=== PATIENT | female | born 1990 | race African-American/Black ===

== ENCOUNTER 2017-08-06 02:37 | Emergency (ER) | payer BC ==
[2017-08-06] MEDS ORDERED: FENTANYL CITRATE INJ/PF 100 MCG/2 ML AMPUL IV ONE (03:24)
[2017-08-06] MEDS ORDERED: KETOROLAC TROMETHAMINE INJ/PF 30 MG/1 ML SDV IV ONE (03:39)
[2017-08-06 03:50] LABS: APPEARANCE,URINE CLOUDY; BILIRUBIN,URINE NEGATIVE (NEGATIVE); COLOR,URINE YELLOW; GLUCOSE, URINE NEGATIVE (NEGATIVE); KETONES,URINE NEGATIVE (NEGATIVE); LEUKOCYTE ESTERASE,URINE LARGE (NEGATIVE); NITRITE,URINE NEGATIVE (NEGATIVE); PROTEIN,URINE 30 mg/dL (NEGATIVE); URINE SPECIFIC GRAVITY 1.028; UROBILINOGEN,URINE NEGATIVE mg/dL (<2.0)
--- NOTE | 2017-08-06 04:21 | ER Document Report ---
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 Pt dneies any fevers or chills, denies nausea vomiting or diarrhea. pt had us performed which noted a "good size " cyst on the right. Pt notes the pain was worst at home but has since subsided. - HPI Onset: Last week Onset/Duration: Sudden, Waxing and waning Quality of pain: Sharp Severity: Mild Pain Level: 1 Associated symptoms: Other Exacerbated by: Denies Relieved by: Denies Similar symptoms previously: Yes Recently seen / treated by doctor: Yes - Related Data Allergies/Adverse Reactions: No Known Allergies Allergy (Unverified 08/06/17 02:38) Past Medical History - Social History Smoking Status: Never Smoker Cigarette use (# per day): No Chew tobacco use (# tins/day): No Smoking Education Provided: No Family History: Reviewed & Not Pertinent Review of Systems - Review of Systems Notes: REVIEW OF SYSTEMS: CONSTITUTIONAL : Denies fever, chills, or sweats. Denies recent illness. EENT: Denies eye, ear, throat, or mouth pain or symptoms. Denies nasal or sinus congestion or discharge. Denies throat, tongue, or mouth swelling or difficulty swallowing. CARDIOVASCULAR: Denies chest pain. Denies palpitations or racing or irregular heart beat. Denies ankle edema. RESPIRATORY: Denies cough, cold, or chest congestion. Denies shortness of breath, difficulty breathing, or wheezing. GASTROINTESTINAL: Admits pelvic pain GENITOURINARY: Denies difficulty urinating, painful urination, burning, frequency, blood in urine, or discharge. FEMALE GENITOURINARY: Denies vaginal bleeding, heavy or abnormal periods, irregular periods. Denies vaginal discharge or odor. MUSCULOSKELETAL: Denies back or neck pain or stiffness. Denies joint pain or swelling. SKIN: Denies rash, lesions or sores. HEMATOLOGIC : Denies easy bruising or bleeding. LYMPHATIC: Denies swollen, enlarged glands. NEUROLOGICAL: Denies confusion or altered mental status. Denies passing out or loss of consciousness. Denies dizziness or lightheadedness. Denies headache. Denies weakness or paralysis or loss of use of either side. Denies problems with gait or speech. Denies sensory loss, numbness, or tingling. Denies seizures. PSYCHIATRIC: Denies anxiety or stress. Denies depression, suicidal ideation, or homicidal ideation. ALL OTHER SYSTEMS REVIEWED AND NEGATIVE. PHYSICAL EXAMINATION: GENERAL: Well-appearing, well-nourished and in no acute distress. HEAD: Atraumatic, normocephalic. EYES: Pupils equal round and reactive to light, extraocular movements intact, conjunctiva are normal. ENT: Nares patent, oropharynx clear without exudates. Moist mucous membranes. NECK: Normal range of motion, supple without lymphadenopathy LUNGS: Breath sounds clear to auscultation bilaterally and equal. No wheezes rales or rhonchi. HEART: Regular rate and rhythm without murmurs ABDOMEN: Soft, nontender, nondistended abdomen. No guarding, no rebound. No masses appreciated. Female : deferred Musculoskeletal: Normal range of motion, no pitting or edema. No cyanosis. NEUROLOGICAL: Cranial nerves grossly intact. Normal speech, normal gait. Normal sensory, motor exams PSYCH: Normal mood, normal affect. SKIN: Warm, Dry, normal turgor, no rashes or lesions noted. Dictation was performed using [employer] voice recognition software Physical Exam - Vital signs Vitals: Temp Pulse Resp BP Pulse Ox 98.9 F 118 H 18 147/105 H 98 08/06/17 02:42 08/06/17 02:42 08/06/17 02:42 08/06/17 02:42 08/06/17 02:42 Course - Re-evaluation Re-evalutation: 08/06/17 04:49 Currently patient is completely asymptomatic, ultrasound is pending to rule out ovarian torsion given history of cyst but this is probably pain related to a cyst versus a ruptured cyst. She looks well is afebrile no distress 08/06/17 06:12 Ultrasound report noted dominant follicle otherwise well-appearing no distress will discharge home patient with follow-up with [facility] After performing a Medical Screening Examination, I estimate there is LOW risk for ACUTE APPENDICITIS, BOWEL OBSTRUCTION, ACUTE CHOLECYSTITIS, PERFORATED DIVERTICULITIS, INCARCERATED HERNIA, PANCREATITIS, PELVIC INFLAMMATORY DISEASE, PERFORATED ULCER, ECTOPIC , or TUBO-OVARIAN ABSCESS, thus I consider the discharge disposition reasonable. Also, there is no evidence or peritonitis , sepsis, or toxicity. I have reevaluated this patient multiple times and no significant life threatening changes are noted. The patient and I have discussed the diagnosis and risks, and we agree with discharging home with close follow-up with the understanding that symptoms and presentations can change. We also discussed returning to the Emergency Department immediately if new or worsening symptoms occur. We have discussed the symptoms which are most concerning (e.g., bloody stool, fever, changing or worsening pain, vomiting) that necessitate immediate return. - Vital Signs Vital signs: Temp Pulse Resp BP Pulse Ox 97.7 F 74 18 125/72 99 08/06/17 04:40 08/06/17 04:40 08/06/17 04:40 08/06/17 04:40 08/06/17 04:40 - Laboratory Result Diagrams: 08/06/17 04:15 08/06/17 04:15 Laboratory results interpreted by me: 08/06/17 08/06/17 03:30 04:15 Alkaline Phosphatase 33 L Urine Protein 30 H Urine Blood SMALL H Ur Leukocyte Esterase LARGE H - Diagnostic Test Radiology reviewed: Image reviewed, Reports reviewed - Report given to patient reviewed by myself Discharge - Discharge Clinical Impression: Pelvic pain Condition: Stable Disposition: HOME, SELF-CARE Instructions: Pelvic Pain ([facility]) Additional Instructions: Follow up with your physician tomorrow for further care or return to the ED IMMEDIATELY if symptoms worsen or new concerns occur. If you cannot afford to follow up with your primary care physician a list of low cost clinics have been provided at the end of your discharge papers as well.
[2017-08-06 04:29] LABS: ABSOLUTE BASOPHILS # (AUTO) 0.1 10^3/uL (0.0-0.2); ABSOLUTE EOSINOPHILS # (AUTO) 0.1 10^3/uL (0.0-0.6); ABSOLUTE LYMPHOCYTES (AUTO) 2.3 10^3/uL (0.5-4.7); ABSOLUTE MONOCYTES (AUTO) 0.6 10^3/uL (0.1-1.4); ABSOLUTE NEUT (AUTO) 3.7 10^3/uL (1.7-8.2); EOSINOPHILS % (AUTO) 1.9 % (0-6); HEMATOCRIT 38.1 % (36.0-47.0); HEMOGLOBIN 12.3 g/dL (12.0-15.5); LYMPHOCYTES % (AUTO) 33.9 % (13-45); MEAN CORPUSCULAR HEMOGLOBIN 27.2 pg (27.0-33.4); MEAN CORPUSCULAR HGB CONC 32.4 g/dL (32.0-36.0); MEAN CORPUSCULAR VOLUME 84 fl (80-97); MONOCYTES % (AUTO) 8.6 % (3-13); PLATELET COUNT 256 10^3/uL (150-450); RED BLOOD COUNT 4.54 10^6/uL (3.72-5.28); SEGMENTED NEUTROPHILS % (AUTO) 54.6 % (42-78); TOTAL CELLS COUNTED % (AUTO) 100 %; WHITE BLOOD COUNT 6.9 10^3/uL (4.0-10.5)
[2017-08-06 04:51] LABS: ALANINE AMINOTRANSFERASE 20 U/L (9-52); ALBUMIN 3.8 g/dL (3.5-5.0); ALKALINE PHOSPHATASE 33 U/L (38-126); ANION GAP 10 (5-19); ASPARTATE AMINO TRANSFERASE 17 U/L (14-36); BILIRUBIN,TOTAL 0.2 mg/dL (0.2-1.3); BLOOD UREA NITROGEN 10 mg/dL (7-20); CALCIUM 9.6 mg/dL (8.4-10.2); CARBON DIOXIDE 24 mmol/L (22-30); CHLORIDE 107 mmol/L (98-107); GLUCOSE 92 mg/dL (75-110); POTASSIUM 4.4 mmol/L (3.6-5.0); SODIUM 140.7 mmol/L (137-145); TOTAL PROTEIN 6.7 g/dL (6.3-8.2)
--- NOTE | 2017-08-06 06:10 | RADIOLOGY REPORT (SQ) ---
EXAM DESCRIPTION: U/S NON OB PEL TV W/DOPPLER CLINICAL HISTORY: 26 years Female, hx ovarian cyst, rlq pain COMPARISON: None. TECHNIQUE: Complete pelvic ultrasound with transvaginal imaging. FINDINGS: The uterus measures 8.1 x 3.5 x 4.2 cm. Endometrial thickness of 1.0 cm. Cervix measures 4.1 cm in length and is closed. The right ovary measures 4.9 x 2.5 x 3.5 cm. There is a 3.0 x 1.7 x 2.0 cm dominant follicle. No follow-up imaging recommended. The left ovary measures 2.8 x 3.2 x 1.9 cm. Limited color spectral Doppler imaging demonstrates flow within the ovaries bilaterally. No free pelvic fluid. IMPRESSION: 1. No sonographic abnormality identified in the pelvis.
[2017-08-06 06:35] VITALS: BP 122/75
== END 2017-08-06 06:42 | disposition home or self-care (01) ==
LOC: ER 02:37
DX: R10.2 Pelvic and perineal pain (principal); R10.31 Right lower quadrant pain
CPT/HCPCS: 99284; 96374; 36415; 85025; 80053; 81001; 76830; 93976; J1885

== ENCOUNTER 2019-11-23 11:19 | Outpatient (CLI) | payer OTHER ==
--- NOTE | 2019-11-23 12:09 | Non Stress Test Report ---
Non Stress Test Datetime Report Generated by CPN: 11/23/2019 12:08 DEMOGRAPHIC Test Number: 1 MONITORING Monitor Explained: Monitor Explained; Test Explained; Patient Verbalized Understanding Time on Monitor: 11/23/2019 11:34 NST INTERVENTIONS NST Interventions: PO Hydration; Reposition Patient Physician Notified NST: NKate Armenta, CNM BABY A: [id number] BABY A Movement : Present Contraction Frequency : none FHR Baseline : 140 Accelerations : 15X15 Decelerations : None Variability : Moderate 6-25bpm NST Review: Meets Criteria for Reactive NST NST Review and Verified By : Regan,RN NST Results: Reactive NST REPORT Report Trigger: Send Report
== END 2019-11-23 12:14 | disposition home or self-care (01) ==
LOC: LC 11:19
PROVIDERS: ATTEND Obstetrics & Gynecology
DX: O24.419 Gestational diabetes mellitus in pregnancy, unspecified control (principal); Z3A.37 37 weeks gestation of pregnancy
CPT/HCPCS: 59025

== ENCOUNTER 2019-12-16 20:22 | Inpatient (IN) | payer OTHER ==
[2019-12-16] MEDS ORDERED: ACETAMINOPHEN 325 MG TABLET PO PRN (20:27)
[2019-12-16] MEDS ORDERED: DINOPROSTONE 10 MG VAGINAL INSERT.SR PV ONE (20:27)
[2019-12-16] MEDS ORDERED: RINGERS SOLUTION,LACTATED 1,000 ML IV ONE (20:27)
[2019-12-16] MEDS ORDERED: MAG HYDROX/AL HYDROX/SIMETH SUSP 30 ML UDCUP PO PRN (20:27)
[2019-12-16] MEDS ORDERED: RINGERS SOLUTION,LACTATED 300 ML IV ONE (20:27)
[2019-12-16] MEDS ORDERED: ZOLPIDEM TARTRATE 5 MG TABLET PO PRN (20:27)
[2019-12-16 21:11] LABS: ABSOLUTE EOSINOPHILS # (AUTO) 0.1 10^3/uL (0.0-0.6); ABSOLUTE MONOCYTES (AUTO) 0.6 10^3/uL (0.1-1.4); ABSOLUTE NEUT (AUTO) 4.5 10^3/uL (1.7-8.2); BASOPHILS % (AUTO) 0.5 % (0-2); HEMATOCRIT 35.9 % (36.0-47.0); HEMOGLOBIN 11.9 g/dL (12.0-15.5); LYMPHOCYTES % (AUTO) 28.3 % (13-45); MEAN CORPUSCULAR HEMOGLOBIN 28.5 pg (27.0-33.4); MEAN CORPUSCULAR HGB CONC 33.2 g/dL (32.0-36.0); MEAN CORPUSCULAR VOLUME 86 fl (80-97); MONOCYTES % (AUTO) 7.8 % (3-13); PLATELET COUNT 209 10^3/uL (150-450); RED BLOOD COUNT 4.19 10^6/uL (3.72-5.28); RED CELL DISTRIBUTION WIDTH 14.6 % (11.5-14.0); SEGMENTED NEUTROPHILS % (AUTO) 62.4 % (42-78); TOTAL CELLS COUNTED % (AUTO) 100 %; WHITE BLOOD COUNT 7.2 10^3/uL (4.0-10.5)
[2019-12-16 21:37] LABS: URINE AMPHETAMINES SCREEN NEGATIVE; URINE BARBITURATES SCREEN NEGATIVE; URINE BENZODIAZEPINES SCREEN NEGATIVE; URINE COCAINE SCREEN NEGATIVE; URINE MARIJUANA (THC) SCREEN NEGATIVE; URINE METHADONE SCREEN NEGATIVE; URINE PHENCYCLIDINE SCREEN NEGATIVE
[2019-12-16] MEDS ORDERED: DINOPROSTONE 10 MG VAGINAL INSERT.SR ONE (21:45)
[2019-12-16] MEDS: RINGERS SOLUTION,LACTATED 1,000 ML IV PRN (21:48)
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
[2019-12-17] MEDS ORDERED: OXYTOCIN 10 UNIT/ML VIAL ONE (10:21)
[2019-12-17] MEDS ORDERED: OXYTOCIN/0.9 % SODIUM CHLORIDE 30 UNIT/500 ML RTUINJ ONE (10:21)
[2019-12-17] MEDS ORDERED: LIDOCAINE 1% INJ-PF (10 MG/ML) 30 ML SDV ONE (10:21)
[2019-12-17] MEDS ORDERED: MISOPROSTOL 0.2 MG TABLET ONE (10:21)
[2019-12-17] MEDS: OXYTOCIN/0.9 % SODIUM CHLORIDE 30 UNIT/500 ML RTUINJ IV PRN (10:25)
[2019-12-17] MEDS: RINGERS SOLUTION,LACTATED 1,000 ML IV PRN (13:00)
[2019-12-17] MEDS ORDERED: DINOPROSTONE 10 MG VAGINAL INSERT.SR PV ONE (17:47)
[2019-12-17] MEDS ORDERED: DINOPROSTONE 10 MG VAGINAL INSERT.SR ONE (18:21)
[2019-12-17] MEDS ORDERED: ACETAMINOPHEN 325 MG TABLET ONE (20:12)
[2019-12-18] MEDS ORDERED: OXYTOCIN 10 UNIT/ML VIAL ONE (10:55)
[2019-12-18] MEDS ORDERED: OXYTOCIN/0.9 % SODIUM CHLORIDE 30 UNIT/500 ML RTUINJ ONE (10:56)
[2019-12-18] MEDS ORDERED: LIDOCAINE 1% INJ-PF (10 MG/ML) 30 ML SDV ONE (10:56)
[2019-12-18] MEDS ORDERED: MISOPROSTOL 0.2 MG TABLET ONE (10:56)
[2019-12-18] MEDS ORDERED: NALBUPHINE HCL INJ 10 MG/1 ML AMPULE ONE ×2 (11:06→21:36)
[2019-12-18] MEDS: OXYTOCIN/0.9 % SODIUM CHLORIDE 30 UNIT/500 ML RTUINJ IV PRN (11:07)
[2019-12-18] MEDS ORDERED: NALBUPHINE HCL INJ 10 MG/1 ML AMPULE IV ONE (11:09)
[2019-12-18] MEDS ORDERED: NALBUPHINE HCL INJ 10 MG/1 ML AMPULE IM ONE (11:09)
[2019-12-18] MEDS ORDERED: OXYTOCIN/0.9 % SODIUM CHLORIDE 30 UNIT/500 ML RTUINJ IV PRN (11:11)
[2019-12-18] MEDS ORDERED: NALBUPHINE HCL INJ 10 MG/1 ML AMPULE INJ ONE (21:34)
[2019-12-18] MEDS ORDERED: EPHEDRINE SULFATE INJ 50 MG/1 ML AMPULE ONE (22:56)
[2019-12-18] MEDS ORDERED: ROPIVACAINE HCL 0.2% INJ/PF (2 MG/ML) 20 ML SDV ONE (22:57)
[2019-12-18] MEDS ORDERED: FENTANYL/BUPIVACAINE/NS/PF 300 MCG/150 ML RTUINJ EPI ONE (22:57)
[2019-12-19] MEDS ORDERED: LIDOCAINE 2% INJ-PF (20 MG/ML) 10 ML AMPUL ONE ×2 (04:22→07:31)
[2019-12-19] MEDS ORDERED: CEFAZOLIN 2 GM/D5W RTU 2 GM/50 ML RTUPB IV ONE ×2 (05:03→06:39)
[2019-12-19] MEDS ORDERED: CEFAZOLIN 2 GM/D5W RTU 2 GM/50 ML RTUPB IV SCH (06:00)
[2019-12-19] MEDS ORDERED: CITRIC ACID/SODIUM CITRATE ORAL SOLN 15 ML UDCUP ONE (06:39)
--- NOTE | 2019-12-19 07:00 | PDOC PROGRESS REPORT ---
Subjective Progress Note for:: 12/19/19 Subjective:: Called as patient having increased pain. She had reported increased pain after placement of IUPC and that was removed about 25 minutes ago because the patient felt pain was related to the IUPC. The pain continued and this is even after anesthesia re-dosed her epidural. Cat 1 NST On exam , cervix is 6/90/-2. She has 1-2 cm caput Discussed with patient and her that after last 4 hours with IUPC showing adequate contractions while it was in, she has had no progression of descent. Recommend a PCS Answered all questions. Consent signed. Reason For Visit: INDUCTION Physical Exam - Physical Exam Vital Signs: Intake & Output 12/17/19 12/18/19 12/19/19 06:59 06:59 06:59 Intake Total 1000 Balance 1000 Weight 145.1 kg General appearance: PRESENT: no acute distress Neurological exam: PRESENT: alert, awake Psychiatric exam: PRESENT: appropriate affect Result Laboratory Results: 12/16/19 20:48 Assessment & Plan - Diagnosis (1) Gestational diabetes mellitus, antepartum Is this a current diagnosis for this admission?: Yes (2) Failure to progress in labor Is this a current diagnosis for this admission?: Yes - Time Time Spent with patient: 15-24 minutes Medications reviewed and adjusted accordingly: Yes - Plan Summary Plan Summary: Called as patient having increased pain. She had reported increased pain after placement of IUPC and that was removed about 25 minutes ago because the patient felt pain was related to the IUPC. The pain continued and this is even after anesthesia re-dosed her epidural. Cat 1 NST On exam , cervix is 6/90/-2. She has 1-2 cm caput Discussed with patient and her that after last 4 hours with IUPC showing adequate contractions while it was in, she has had no progression of descent. Recommend a PCS Answered all questions. Consent signed Plan ancef 2 gms IV prior to OR NPO for >8 hours
[2019-12-19] MEDS ORDERED: ONDANSETRON HCL INJ/PF 4 MG/2 ML SDV ONE (07:02)
[2019-12-19] MEDS ORDERED: PHENYLEPHRINE HCL INJ/PF 10 MG/1 ML SDV ONE (07:02)
[2019-12-19] MEDS ORDERED: OXYTOCIN/0.9 % SODIUM CHLORIDE 0 UNIT/0 ML RTUINJ ONE (07:02)
[2019-12-19] MEDS ORDERED: GLYCOPYRROLATE INJ 0.4 MG/2 ML VIAL ONE (07:02)
[2019-12-19] MEDS ORDERED: KETOROLAC TROMETHAMINE INJ/PF 30 MG/1 ML SDV ONE (07:02)
[2019-12-19] MEDS ORDERED: MIDAZOLAM 2 MG/2 ML INJ ONE (07:02)
[2019-12-19] MEDS ORDERED: ACETAMINOPHEN 1,000 MG/100 ML RTUPB IV ONE (07:02)
[2019-12-19] MEDS ORDERED: OXYTOCIN 10 UNIT/ML VIAL ONE ×2 (07:02→08:03)
[2019-12-19] MEDS ORDERED: FENTANYL CITRATE INJ/PF 100 MCG/2 ML AMPUL ONE ×4 (07:02→11:17)
[2019-12-19] MEDS ORDERED: SIMETHICONE 80 MG TAB.CHEW PO PRN (07:05)
[2019-12-19] MEDS ORDERED: RINGERS SOLUTION,LACTATED 1,000 ML IV PRN (07:05)
[2019-12-19] MEDS ORDERED: OXYCODONE-ACETAMINOPHEN 5-325 MG TABLET PO PRN ×2 (07:05)
[2019-12-19] MEDS ORDERED: DIPH/PERTUSS(ACELL)/TETANUS VAC/PF 0.5 ML SYR (>=10YO) IM PRN (07:05)
[2019-12-19] MEDS ORDERED: MEASLES,MUMPS&RUBELLA VACC/PF 0.5 ML VIAL SUBCUT PRN (07:05)
[2019-12-19] MEDS ORDERED: OXYTOCIN/0.9 % SODIUM CHLORIDE 30 UNIT/500 ML RTUINJ IV PRN (07:05)
[2019-12-19] MEDS ORDERED: PROMETHAZINE HCL INJ 25 MG/1 ML VIAL IV PRN (07:05)
[2019-12-19] MEDS ORDERED: HYDROMORPHONE HCL INJ/PF 2 MG/ML AMPULE IV PRN (07:06)
[2019-12-19] MEDS ORDERED: OXYTOCIN/0.9 % SODIUM CHLORIDE 30 UNIT/500 ML RTUINJ ONE (07:31)
[2019-12-19] MEDS ORDERED: CARBOPROST TROMETHAMINE INJ 250 MCG/1 ML AMPULE ONE ×2 (07:31→10:53)
[2019-12-19] MEDS ORDERED: MISOPROSTOL 0.2 MG TABLET ONE ×2 (07:31→10:07)
[2019-12-19] MEDS ORDERED: METHYLERGONOVINE MALEATE INJ/PF 0.2 MG/1 ML AMPULE ONE (07:32)
[2019-12-19] MEDS ORDERED: BUPIVACAINE HCL 0.25 % INJ/PF (2.5 MG/1 ML) 30 ML VIAL ONE (08:30)
--- NOTE | 2019-12-19 08:59 | Operative Report ---
Operative Report DATE OF SURGERY: 12/19/19 PREOPERATIVE DIAGNOSIS: IUP @ 40 3/7 wks, failure to progress, failed induction POSTOPERATIVE DIAGNOSIS: Same OPERATION: Primary low transverse hysterotomy section SURGEON: NUBIA LECHUGA ANESTHESIA: Spinal COMPLICATIONS: None ESTIMATED BLOOD LOSS: 1200 cc INTRAOPERATIVE FINDINGS: Female in cephalic presentation with Apgars of 8 and 9 purulent material noted on hysterotomy infant felt warm to touch, uterine atony during the procedure was rectified with sublingual Cytotec and intr amuscular Pitocin injected into the uterus PROCEDURE: PROCEDURE IN DETAIL: The patient was taken to the operating room, prepared and draped in a normal sterile fashion in a supine position with a leftward tilt. A transverse skin incision was made with a scalpel and carried through to the underlying layer of fascia with the same scalpel. The fascia was excised in the midline and extended laterally with Homer. The fascia was then dissected from the rectus muscle sharply with Homer and the rectus muscle was divided and the peritoneal cavity was entered sharply with the same Metzenbaum. With good visualization of the bladder and the uterus the bladder blade was inserted. The hysterotomy was nicked with a scalpel and extended laterally with surgeon finger fraction. The infant was then delivered atraumatically. The nose and mouth were suctioned with a suction bulb, the cord was clamped and cut and handed off to awaiting pediatricians. Cord blood was collected. The placenta was removed manually. The uterus was exteriorized and cleared of clots and debris. The hysterotomy was closed with 0 chromic in a running, locked fashion. A second layer of the same suture was used to imbricate to ensure hemostasis. The uterus was returned to the abdomen and peritoneal cavity was cleared of clots and debris. The rectus muscle and peritoneum were repaired with mattress stitch of 2-0 Chromic. The fascia was closed with 0-PDS. The subcutaneous layer was closed with plain catgut and the skin was closed with 4-0 monocryl. The patient tolerated the procedure well. Sponge, lap, and needle counts correct x2 and the patient was taken to recovery in stable condition.
[2019-12-19 09:42] LABS: HEMATOCRIT 35.7 % (36.0-47.0); HEMOGLOBIN 11.6 g/dL (12.0-15.5); MEAN CORPUSCULAR HEMOGLOBIN 28.3 pg (27.0-33.4); MEAN CORPUSCULAR HGB CONC 32.5 g/dL (32.0-36.0); MEAN CORPUSCULAR VOLUME 87 fl (80-97); PLATELET COUNT 186 10^3/uL (150-450); RED BLOOD COUNT 4.09 10^6/uL (3.72-5.28); RED CELL DISTRIBUTION WIDTH 15.1 % (11.5-14.0); WHITE BLOOD COUNT 11.9 10^3/uL (4.0-10.5)
[2019-12-19] MEDS: RINGERS SOLUTION,LACTATED 1,000 ML IV PRN (09:53)
[2019-12-19] MEDS ORDERED: LOPERAMIDE HCL 2 MG CAPSULE ONE (10:01)
[2019-12-19] MEDS ORDERED: TRANEXAMIC ACID INJ/PF 1,000 MG/10 ML SDV ONE (10:53)
[2019-12-19] MEDS ORDERED: NORMAL SALINE 250 ML IV PRN ×2 (10:55)
[2019-12-19] MEDS ORDERED: CARBOPROST TROMETHAMINE INJ 250 MCG/1 ML AMPULE IM ONE (10:59)
[2019-12-19] MEDS ORDERED: TRANEXAMIC ACID INJ/PF 1,000 MG/10 ML SDV IV ONE (11:06)
[2019-12-19] MEDS ORDERED: AMPICILLIN SOD/SULBACTAM 3 GM VIAL ONE (11:55)
[2019-12-19] MEDS ORDERED: HYDROMORPHONE HCL INJ/PF 2 MG/ML AMPULE ONE (11:55)
[2019-12-19] MEDS ORDERED: AMPICILLIN SOD/SULBACTAM 3 GM VIAL IV SCH (12:00)
--- NOTE | 2019-12-19 13:31 | Delivery Summary ---
Del Sum A-C Datetime Report Generated by CPN: 12/19/2019 13:31 DELIVERY PERSONNEL DELIVERY PERSONNEL: [id number] Delivery Doctor:: Lucy Bonner MD Anesthesiologist:: Daisy Randolph MD OPERATING THEATRE TECHNICIAN:: Meng Normile, OPERATING THEATRE TECHNICIAN Labor and Delivery Nurse:: Vivienne Pike RNgas combustion engineer Nurse:: Katherine Gutierrez RN [place] Assembler:: Vivienne Pike RN Java Web Developer/COORDINATOR CARDIOPULMONARY SERVICES: Iris Mcginnis, ST Java Web Developer/COORDINATOR CARDIOPULMONARY SERVICES: Pauline Erazo, TYRE FITTER MATERNAL INFORMATION Delivery Anesthesia: Epidural; Spinal Medications After Delivery: Pitocin 30 Units in 500ml NS/D5W; Pitocin Drip 20 Units/1000ml NSS; Cytotec 800mcg Per Rectum/Vagina; Other-Please Comment Meds After Delivery Comment: Cytotec 800mcg per rectum, Hemabate 250mcg x2 doses, 200mcg Cytotec SL, Pitocin 10units IM Uterus, TXA 1000mg IV Delivery QBL: 1220 Maternal Complications: Hemorrhage; Prolonged Labor > 20 Hrs LABOR SUMMARY EDC: 12/13/2019 00:00 No. Babies in Womb: 1 Attempted: No Labor Anesthesia: Epidural LABOR INFORMATION Reason for Induction: Post Dates; Maternal Diabetes Reason for Induction- Other: Gestational Diabetes (Maternal Diabetes) Onset of Labor: 12/18/2019 14:45 Cervical Ripening Agents: Blackman Balloon Oxytocin: Induction Group B Beta Strep: Negative Steroids Given: None Reason Steroids Not Administered: Not Applicable MEMBRANES Membranes Rupture Method: Artificial Rupture of Membranes: 12/18/2019 14:45 Length of Rupture (hr): 17.25 Amniotic Fluid Color: Clear Amniotic Fluid Amount: Scant Amniotic Fluid Odor: Normal STAGES OF LABOR Stage 3 hr: 0 Stage 3 min: 0 Total Time in Labor hr: 17 Total Time in Labor min: 15 VAGINAL DELIVERY Episiotomy: None Laceration #1: None Laceration Extension #1: N/A Sponge Count Correct: N/A Sharps Count Correct: N/A CSECTION DELIVERY Primary Indication: Prolonged Latent Phase Secondary Indication: Failure of Descent CSection Urgency: Non-Scheduled CSection Incidence: Primary Labor: Labor Elective: N/A CSection Incision: Lower Uterine Transverse BABY A INFORMATION Delivery Date/Time: 12/19/2019 08:00 Method of Delivery: Nurse Controlled Delivery: No Born in Route : No : N/A Forceps: N/A Vacuum Extraction: N/A Shoulder Dystocia : No PRESENTATION/POSITION BABY A Presentation: Cephalic Cephalic Presentation: Vertex Vertex Position: Occipital Posterior Breech Presentation: N/A PLACENTA INFORMATION BABY A Placenta Delivery Time : 12/19/2019 08:00 Placenta Method of Delivery: Manual Removal Placenta Status: Delivered SCORES BABY A Heart Rate 1 min: >100 bpm Resp Effort 1 min: Good Cry Reflex Irritability 1 min: Cough or Sneeze or Pulls Away Muscle Tone 1 min: Active Motion Color 1 min: Body [place], Extremities Blue Resuscitation Effort 1 min: Tactile Stimulation SCORE 1 MIN: 9 Heart Rate 5 min: >100 bpm Resp Effort 5 min: Good Cry Reflex Irritability 5 min: Cough or Sneeze or Pulls Away Muscle Tone 5 min: Active Motion Color 5 min: Body [place], Extremities Blue SCORE 5 MIN: 9 INFORMATION BABY A Gestational Age at Delivery: 40.6 Gestational Status: Full Term- 39- 40.6 Weeks Outcome : Liveborn Condition : Stable Infant Sex: Female IDENTIFICATION BABY A Verification Date/Time: 12/19/2019 09:17 ID Band Number: [id number] Mother's Name Verified: Yes Infant RN Verifying Infant: VaibhavARPAN quinonez Additional Verifying Personnel: RasheedaRN WEIGHT/LENGTH BABY A Birthweight (gm): 3490 Infant Weight (lb): 7 Infant Weight (oz): 11 Infant Length (in): 20.50 Length (cm): 52.07 CORD INFORMATION BABY A No. Cord Vessels: 3 Nuchal Cord : N/A Cord Blood Taken: Yes-For Storage (Mom's Blood type +) Infant Suction: None ASSESSMENT BABY A Skin to Skin: Yes BABY B INFORMATION : N/A
[2019-12-19] MEDS: DOCUSATE SODIUM 100 MG CAPSULE PO SCH ×2 (14:31→18:06)
[2019-12-19] MEDS: PRENATAL VITAMIN W DHA CAPSULE PO SCH (14:32)
[2019-12-19] MEDS ORDERED: METHYLERGONOVINE MALEATE 0.2 MG TABLET ONE (14:58)
[2019-12-19] MEDS: KETOROLAC TROMETHAMINE INJ/PF 30 MG/1 ML SDV IV SCH ×2 (15:18→22:44)
[2019-12-19] MEDS: METHYLERGONOVINE MALEATE 0.2 MG TABLET PO SCH ×3 (15:18→22:44)
[2019-12-19] MEDS ORDERED: DIPHENHYDRAMINE HCL 25 MG CAPSULE ONE (18:41)
[2019-12-19] MEDS ORDERED: AMPICILLIN SODIUM/SULBACTAM NA 3 GM in NORMAL SALINE 100 ML IV SCH (20:00)
[2019-12-19] MEDS: ACETAMINOPHEN 325 MG TABLET PO PRN (21:18)
[2019-12-20] MEDS: AMPICILLIN SODIUM/SULBACTAM NA 3 GM in NORMAL SALINE 100 ML IV SCH ×2 (00:08→06:08)
[2019-12-20] MEDS: METHYLERGONOVINE MALEATE 0.2 MG TABLET PO SCH ×3 (02:34→10:04)
[2019-12-20] MEDS: ACETAMINOPHEN 325 MG TABLET PO PRN (05:59)
[2019-12-20] MEDS: KETOROLAC TROMETHAMINE INJ/PF 30 MG/1 ML SDV IV SCH (06:02)
[2019-12-20 09:01] LABS: APPEARANCE,URINE CLEAR; BILIRUBIN,URINE NEGATIVE (NEGATIVE); GLUCOSE, URINE NEGATIVE (NEGATIVE); KETONES,URINE NEGATIVE (NEGATIVE); LEUKOCYTE ESTERASE,URINE TRACE (NEGATIVE); NITRITE,URINE NEGATIVE (NEGATIVE); PROTEIN,URINE 100 mg/dL (NEGATIVE); URINE SPECIFIC GRAVITY 1.006; UROBILINOGEN,URINE NEGATIVE mg/dL (<2.0)
[2019-12-20 09:02] LABS: COLOR,URINE RED
--- NOTE | 2019-12-20 09:09 | RADIOLOGY REPORT (SQ) ---
EXAM DESCRIPTION: CHEST 2 VIEWS IMAGES COMPLETED DATE/TIME: 12/20/2019 7:50 am REASON FOR STUDY: elevated temp,infection? COMPARISON: None. TECHNIQUE: Frontal and lateral radiographic views of the chest acquired. NUMBER OF VIEWS: Two view. LIMITATIONS: None. FINDINGS: LUNGS AND PLEURA: No opacities, masses or pneumothorax. No pleural effusion. MEDIASTINUM AND HILAR STRUCTURES: No masses or contour abnormalities. HEART AND VASCULAR STRUCTURES: Heart normal size. No evidence for failure. BONES: No acute findings. HARDWARE: None in the chest. OTHER: No other significant finding. IMPRESSION: NO SIGNIFICANT RADIOGRAPHIC FINDING IN THE CHEST. TECHNICAL DOCUMENTATION: JOB ID: [id number] 2010 [employer]- All Rights Reserved Reading location - IP/workstation name: [email or web address]
[2019-12-20] MEDS: IBUPROFEN 800 MG TABLET PO SCH ×4 (10:00→23:17)
[2019-12-20] MEDS: PRENATAL VITAMIN W DHA CAPSULE PO SCH (10:04)
[2019-12-20] MEDS: DOCUSATE SODIUM 100 MG CAPSULE PO SCH ×2 (10:04→17:10)
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
[2019-12-21] MEDS: IBUPROFEN 800 MG TABLET PO SCH ×2 (05:20→13:31)
[2019-12-21] MEDS: DOCUSATE SODIUM 100 MG CAPSULE PO SCH (09:20)
[2019-12-21] MEDS: PRENATAL VITAMIN W DHA CAPSULE PO SCH (09:20)
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
[2019-12-21 11:12] VITALS: BP 133/78
== END 2019-12-21 14:30 | disposition home or self-care (01) | DRG 787 ==
LOC: LR 20:22 → 2S 12-19 12:40
PROVIDERS: ADMIT Obstetrics & Gynecology; ATTEND Obstetrics & Gynecology
PROC: 10D00Z1 Extraction of Products of Conception, Low, Open Approach (ICD-10-PCS; principal; 2019-12-19)
PROC: 30233N1 Transfusion of Nonautologous Red Blood Cells into Peripheral Vein, Percutaneous Approach (ICD-10-PCS; 2019-12-19)
DX: O48.0 Post-term pregnancy (principal); O63.9 Long labor, unspecified; O72.1 Other immediate postpartum hemorrhage; O24.425 Gestational diabetes mellitus in childbirth, controlled by oral hypoglycemic drugs; Z3A.40 40 weeks gestation of pregnancy; O62.0 Primary inadequate contractions; O99.284 Endocrine, nutritional and metabolic diseases complicating childbirth; E28.2 Polycystic ovarian syndrome; O99.344 Other mental disorders complicating childbirth; F41.8 Other specified anxiety disorders; Z37.0 Single live birth; Z91.410 Personal history of adult physical and sexual abuse
CPT/HCPCS: 1967; 1968; 36415; 36430; 64450; 71046; 76942; 80307; 81001; 85025; 85027; 86592; 86850; 86900; 86901; 86920; 87040; 94760; 94799; C1758; J0131; J0295; J0690; J1170; J1885; J2210; J2250; J2300; J2370; J2405; J2590; J2795; J3010; J3490; J7050; P9016

== ENCOUNTER 2020-04-15 07:11 | Inpatient (IN) | payer MEDICAID, OTHER ==
[2020-04-15 08:13] LABS: ABSOLUTE LYMPHOCYTES (AUTO) 1.7 10^3/uL (0.5-4.7); ABSOLUTE MONOCYTES (AUTO) 0.7 10^3/uL (0.1-1.4); BASOPHILS % (AUTO) 0.6 % (0-2); EOSINOPHILS % (AUTO) 0.3 % (0-6); HEMATOCRIT 40.3 % (36.0-47.0); HEMOGLOBIN 13.3 g/dL (12.0-15.5); LYMPHOCYTES % (AUTO) 19.9 % (13-45); MEAN CORPUSCULAR HEMOGLOBIN 26.2 pg (27.0-33.4); MEAN CORPUSCULAR VOLUME 79 fl (80-97); MONOCYTES % (AUTO) 8.7 % (3-13); PLATELET COUNT 297 10^3/uL (150-450); RED BLOOD COUNT 5.08 10^6/uL (3.72-5.28); RED CELL DISTRIBUTION WIDTH 15.9 % (11.5-14.0); SEGMENTED NEUTROPHILS % (AUTO) 70.5 % (42-78); TOTAL CELLS COUNTED % (AUTO) 100 %; WHITE BLOOD COUNT 8.5 10^3/uL (4.0-10.5)
[2020-04-15 08:38] LABS: ALBUMIN 4.3 g/dL (3.5-5.0); ALKALINE PHOSPHATASE 68 U/L (38-126); ANION GAP 12 (5-19); ASPARTATE AMINO TRANSFERASE 30 U/L (14-36); BILIRUBIN,TOTAL 0.5 mg/dL (0.2-1.3); BLOOD UREA NITROGEN 10 mg/dL (7-20); CALCIUM 9.9 mg/dL (8.4-10.2); CARBON DIOXIDE 26 mmol/L (22-30); CHLORIDE 102 mmol/L (98-107); GLUCOSE 116 mg/dL (75-110); POTASSIUM 4.4 mmol/L (3.6-5.0)
[2020-04-15] MEDS ORDERED: NORMAL SALINE 1000 ML 1,000 ML IV ONE (08:38)
--- NOTE | 2020-04-15 08:40 | ER Document Report ---
ED General - General Chief Complaint: Abdominal Pain Stated Complaint: ABDOMINAL PAIN Time Seen by Provider: 04/15/20 08:09 - HPI Notes: Patient is a 29 y/o female with no medical hx who presents with diarrhea and abdominal pain. Patient endorses 4 days of nonbloody diarrhea. She states she began to have abdominal pain, nausea, and vomiting that began last night. She describes the abdominal pain as sharp and achy, located at her mid epigastrum. She tried taking GasX with no relief. She denies chest pain, shortness of devon th, vaginal discharge, fever, and hematemesis. Patient has a hx of in November 2019 and is currently breast feeding. She endorses occasional alcohol use but denies tobacco and recreational drug use. - Related Data Allergies/Adverse Reactions: No Known Allergies Allergy (Verified 04/15/20 16:38) Past Medical History - General Information source: Patient - Social History Smoking Status: Unknown if Ever Smoked Frequency of alcohol use: Occasional Drug Abuse: None Family History: Reviewed & Not Pertinent Renal/ Medical History: Denies: Hx Peritoneal Dialysis Psychiatric Medical History: Reports: Hx Depression Review of Systems - Review of Systems Constitutional: No symptoms reported EENT: No symptoms reported Cardiovascular: No symptoms reported Respiratory: No symptoms reported Gastrointestinal: See HPI Genitourinary: No symptoms reported Female Genitourinary: No symptoms reported Musculoskeletal: No symptoms reported Skin: No symptoms reported Hematologic/Lymphatic: No symptoms reported Neurological/Psychological: No symptoms reported Physical Exam - Vital signs Vitals: Temp Pulse Resp BP Pulse Ox 99.0 F 92 16 140/73 H 100 04/15/20 07:21 04/15/20 07:21 04/15/20 07:21 04/15/20 07:21 04/15/20 07:21 - Notes Notes: PHYSICAL EXAMINATION: VITALS: Vitals reviewed and within normal limits. GENERAL: Well-appearing, well-nourished and appears uncomfortable sitting on the bed. HEAD: Atraumatic, normocephalic. EYES: Pupils equal, round, and reactive to light, extraocular movements intact, sclera anicteric, conjunctiva are normal. ENT: Nares patent. Moist mucous membranes. Oropharynx clear without exudates. NECK: Normal range of motion, supple without lymphadenopathy. LUNGS: Breath sounds clear to auscultation bilaterally and equal. No wheezes, rales, or rhonchi. HEART: Regular, rate, and rhythm without murmurs. ABDOMEN: Soft abdomen with normoactive bowel sounds. RUQ tenderness, + Montague's sign. No guarding, no rebound. No masses appreciated. EXTREMITIES: Normal range of motion, no pitting or edema. No cyanosis. NEUROLOGICAL: No focal neurological deficits. Moves all extremities spontaneously and on command. PSYCH: Normal mood, normal affect. SKIN: Warm, Dry, normal turgor, no rashes or lesions noted. Course - Re-evaluation Re-evalutation: Patient is a 29 y/o female and presents with mid epigastrum abdominal pain for one day. Patient is mildly hypertensive with a BP of 140/73. Vital signs are otherwise stable and within normal limits. On exam, RUQ tenderness with +Montague's sign. 1L of IVF ordered. CBC and CMP are unremarkable and within normal limits. Lipase is elevated at 868.1. US Gallbladder shows gallstones with no biliary dilation. UA still pending. Presentation and workup are consistent with gallstone pancreatitis. 04/15/20 12:46 I spoke with my supervising physician, Dr. Mireles, concerning this patient, and he recommended calling to see if possible to have ERCP performed. Dr. Marie called Dr. Tineo, tack picker, to see if he would come in and perform an ERCP. We are waiting for his call back. Dr. Marie re commended giving the patient a dose of unasyn. 3mg IV Unasyn ordered. 04/15/20 12:56 I spoke with the patient concerning her workup and diagnosis of gallstone pancreatitis, as well as the plan to proceed with ERCP here if possible. Patient is in agreement with the plan thus far. Patient continues to have pain and nausea. 4mg IV morphine and 4mg IV zofran ordered. 04/15/20 13:30 Dr. Marie spoke with Dr. Tineo who recommended calling the surgeon on-call for cholecystectomy and intraoperative cholangiography (IOC). He reports that gallstones will usually pass but if the surgeon sees a gallstone that needs to be removed to have the patient follow up with him outpatient and he will perform an ERCP. 04/15/20 13:[address] Jaimes, the surgeon on-call, concerning this patient. He agreed to come see the patient. 04/15/20 17:36 Dr. Jaimes agrees to accept the patien. He plans to admit the patient. She will be "placed on bowel rest, IV fluids, IV pain control, IV antibiotics for possible associated cholecystitis. Once pancreatitis has quieted down, she will undergo a laparoscopic cholecystectomy with intraoperative cholangiogram. Depending on the cholangiogram she may or may not receive an ERCP". - Vital Signs Vital signs: Temp Pulse Resp BP Pulse Ox 99.2 F 87 20 128/75 H 99 04/15/20 13:38 04/15/20 13:38 04/15/20 13:38 04/15/20 13:38 04/15/20 13:38 - Laboratory Result Diagrams: 04/15/20 07:41 04/15/20 07:41 Laboratory results interpreted by me: 04/15/20 04/15/20 04/15/20 07:41 07:41 14:16 MCV 79 L MCH 26.2 L RDW 15.9 H Glucose 116 H Lipase 868.1 H Urine Protein 100 H Discharge - Discharge Clinical Impression: Acute gallstone pancreatitis, Gallstones Abdominal pain Qualifiers: Abdominal location: upper abdomen, unspecified Qualified Code(s): R10.10 - Upper abdominal pain, unspecified Condition: Stable Disposition: ADMITTED INPATIENT Admitting Provider: Surgicalist Unit Admitted: Surgical Floor
[2020-04-15] MEDS ORDERED: AMPICILLIN SOD/SULBACTAM 1.5 GM VIAL IV ONE (12:51)
[2020-04-15] MEDS ORDERED: MORPHINE SULFATE 10 MG/ML INJ IV ONE (12:56)
[2020-04-15] MEDS ORDERED: ONDANSETRON HCL INJ/PF 4 MG/2 ML SDV IV ONE (12:56)
[2020-04-15 14:56] LABS: APPEARANCE,URINE CLEAR; BILIRUBIN,URINE NEGATIVE (NEGATIVE); COLOR,URINE YELLOW; GLUCOSE, URINE NEGATIVE (NEGATIVE); KETONES,URINE NEGATIVE (NEGATIVE); LEUKOCYTE ESTERASE,URINE NEGATIVE (NEGATIVE); NITRITE,URINE NEGATIVE (NEGATIVE); PROTEIN,URINE 100 mg/dL (NEGATIVE); URINE SPECIFIC GRAVITY 1.026; UROBILINOGEN,URINE NEGATIVE mg/dL (<2.0)
[2020-04-15] MEDS ORDERED: NORMAL SALINE 1000 ML 1,000 ML IV PRN (16:08)
--- NOTE | 2020-04-15 17:02 | RADIOLOGY REPORT (SQ) ---
EXAM DESCRIPTION: U/S ABDOMEN LIMITED W/O DOP IMAGES COMPLETED DATE/TIME: 04/15/2020 10:59 am REASON FOR STUDY: abdominal pain COMPARISON: None. TECHNIQUE: Dynamic and static grayscale images acquired of the abdomen and recorded on PACS. Additio nal selected color Doppler and spectral images recorded. LIMITATIONS: None. FINDINGS: PANCREAS: No masses. No peripancreatic edema or fluid collections. LIVER: Enlarged, measuring 22 cm. Echotexture is coarse with increased echogenicity consistent with fatty infiltration. LIVER VASCULATURE: Normal directional flow of the main portal vein and hepatic veins. GALLBLADDER: Gallstones. Normal wall thickness. No pericholecystic fluid. ULTRASOUND-DETECTED OCAMPO'S SIGN: Negative. INTRAHEPATIC DUCTS AND COMMON DUCT: CBD and intrahepatic ducts normal caliber. No filling defects. INFERIOR VENA CAVA: Normal flow. AORTA: No aneurysm. RIGHT KIDNEY: Normal size. Normal echogenicity. No solid or suspicious masses. No hydronephros is. No calcifications. PERITONEAL AND RIGHT PLEURAL SPACE: No ascites or effusions. OTHER: No other significant finding. IMPRESSION: 1. GALLSTONES. 2. FATTY INFILTRATION OF THE LIVER. OTHERWISE NORMAL RIGHT UPPER QUADRANT ULTRASOUND. TECHNICAL DOCUMENTATION: JOB ID: [id number] 2010 [employer]- All Rights Reserved Reading location - IP/workstation name: [email or web address]
[2020-04-15] MEDS ORDERED: ONDANSETRON HCL INJ/PF 4 MG/2 ML SDV IV PRN (17:22)
--- NOTE | 2020-04-15 17:22 | PDOC H&P ---
History of Present Illness Admission Date/PCP: NUBIA LECHUGA MD Patient complains of: Abdominal pain History of Present Illness: ERWIN NIEVES is a 29 year old female who is about 5 months presenting with acute onset of epigastric and right upper quadrant abdominal pain that began last night has progressively worsened along with nausea and v omiting. No fever. No jaundice. Couple of prior episodes of this sort of pain in the past several months but both episodes were very transient. Patient has been experiencing some intermittent diarrhea in the last couple of weeks. Past Medical History Medical History: None Endocrine Medical History: Reports: Gestational Diabetes Psychiatric Medical History: Reports: Depression Past Surgical History Past Surgical History: Reports: Section Social History Smoking Status: Never Smoker Electronic Cigarette use?: No Frequency of Alcohol Use: Rare Hx Recreational Drug Use: No Hx Prescription Drug Abuse: No Family History Family History: Reviewed & Not Pertinent Parental Family History Reviewed: Yes - Mother with ovarian cancer in her 30s. Children Family History Reviewed: Yes Sibling(s) Family History Reviewed.: Yes Medication/Allergy Home Medications: Cyclosporine 0.05% Oph Emulsio [Restasis 0.05% Oph Emulsion Pf 0.4 ml] 1 drop OU BID 04/15/20 Norethindrone 1 tab PO DAILY 04/15/20 Allergies/Adverse Reactions: No Known Allergies Allergy (Verified 04/15/20 16:38) Review of Systems All systems: reviewed and no additional remarkable complaints except as stated Gastrointestinal: PRESENT: as per HPI Physical Exam Vital Signs: Temp Pulse Resp BP Pulse Ox 99.2 F 87 20 128/75 H 99 04/15/20 13:38 04/15/20 13:38 04/15/20 13:38 04/15/20 13:38 04/15/20 13:38 Intake & Output 04/14/20 04/15/20 04/16/20 06:59 06:59 06:59 Intake Total 1000 Balance 1000 Weight 129.5 kg General appearance: PRESENT: no acute distress, cooperative Eye exam: PRESENT: conjunctiva pink Neck exam: PRESENT: other - Supple with no masses and no tenderness Respiratory exam: PRESENT: clear to auscultation elvis Cardiovascular exam: PRESENT: RRR GI/Abdominal exam: PRESENT: other - Soft, obese, diffuse epigastric and right upper quadrant tenderness without peritoneal signs. Extremities exam: PRESENT: other - No tenderness and no swelling. Neurological exam: PRESENT: alert, awake Psychiatric exam: PRESENT: appropriate affect Skin exam: PRESENT: warm Results Laboratory Results: 04/15/20 07:41 04/15/20 07:41 04/15/20 04/15/20 04/15/20 07:41 07:41 07:41 WBC 8.5 RBC 5.08 Hgb 13.3 Hct 40.3 MCV 79 L MCH 26.2 L MCHC 33.0 RDW 15.9 H Plt Count 297 Seg Neutrophils % 70.5 Sodium 139.5 Potassium 4.4 Chloride 102 Carbon Dioxide 26 Anion Gap 12 BUN 10 Creatinine 0.62 Est GFR ( Amer) > 60 Glucose 116 H Calcium 9.9 Total Bilirubin 0.5 AST 30 Alkaline Phosphatase 68 Total Protein 8.0 Albumin 4.3 Lipase 868.1 H Serum HCG, Qual NEGATIVE Urine Color Urine Appearance Urine pH Ur Specific [place] Urine Protein Urine Glucose (UA) Urine Ketones Urine Blood Urine Nitrite Ur Leukocyte Esterase Urine WBC (Auto) Urine RBC (Auto) 04/15/20 14:16 WBC RBC Hgb Hct MCV MCH MCHC RDW Plt Count Seg Neutrophils % Sodium Potassium Chloride Carbon Dioxide Anion Gap BUN Creatinine Est GFR ( Amer) Glucose Calcium Total Bilirubin AST Alkaline Phosphatase Total Protein Albumin Lipase Serum HCG, Qual Urine Color YELLOW Urine Appearance CLEAR Urine pH 6.0 Ur Specific [place] 1.026 Urine Protein 100 H Urine Glucose (UA) NEGATIVE Urine Ketones NEGATIVE Urine Blood NEGATIVE Urine Nitrite NEGATIVE Ur Leukocyte Esterase NEGATIVE Urine WBC (Auto) 1 Urine RBC (Auto) 3 Impressions: Abdomen Ultrasound 04/15/20 08:37 IMPRESSION: 1. GALLSTONES. 2. FATTY INFILTRATION OF THE LIVER. OTHERWISE NORMAL RIGHT UPPER QUADRANT ULTRASOUND. Assessment & Plan - Diagnosis (1) Acute gallstone pancreatitis Is this a current diagnosis for this admission?: Yes Plan: Plan to admit placed on bowel rest, IV fluids, IV pain control, IV antibiotics for possible associated cholecystitis. Once pancreatitis has quieted down, she will undergo a laparoscopic cholecystectomy with intraoperative cholangiogram. Depending on the cholangiogram she may or may not receive an ERCP. - Time Anticipated Discharge Disposition: Home, Self Care Anticipated Discharge Timeframe: within 72 hours
[2020-04-15] MEDS: HYDROMORPHONE HCL INJ/PF 2 MG/ML AMPULE IV PRN ×2 (18:11→22:30)
[2020-04-15] MEDS: NORMAL SALINE 1000 ML 1,000 ML IV PRN (22:32)
[2020-04-15] MEDS: AMPICILLIN SODIUM/SULBACTAM NA 3 GM in NORMAL SALINE 100 ML IV SCH (22:32)
[2020-04-16] MEDS: AMPICILLIN SODIUM/SULBACTAM NA 3 GM in NORMAL SALINE 100 ML IV SCH ×4 (03:42→20:29)
[2020-04-16] MEDS: NORMAL SALINE 1000 ML 1,000 ML IV PRN ×2 (06:06→16:17)
[2020-04-16] MEDS: HYDROMORPHONE HCL INJ/PF 2 MG/ML AMPULE IV PRN ×4 (06:55→20:28)
[2020-04-16 08:54] LABS: ABSOLUTE EOSINOPHILS # (AUTO) 0.2 10^3/uL (0.0-0.6); ABSOLUTE LYMPHOCYTES (AUTO) 1.8 10^3/uL (0.5-4.7); ABSOLUTE MONOCYTES (AUTO) 0.6 10^3/uL (0.1-1.4); ABSOLUTE NEUT (AUTO) 4.6 10^3/uL (1.7-8.2); BASOPHILS % (AUTO) 0.6 % (0-2); EOSINOPHILS % (AUTO) 2.5 % (0-6); HEMATOCRIT 36.9 % (36.0-47.0); HEMOGLOBIN 11.9 g/dL (12.0-15.5); MEAN CORPUSCULAR HEMOGLOBIN 25.6 pg (27.0-33.4); MEAN CORPUSCULAR HGB CONC 32.3 g/dL (32.0-36.0); MEAN CORPUSCULAR VOLUME 79 fl (80-97); MONOCYTES % (AUTO) 8.6 % (3-13); PLATELET COUNT 236 10^3/uL (150-450); RED BLOOD COUNT 4.65 10^6/uL (3.72-5.28); RED CELL DISTRIBUTION WIDTH 16.2 % (11.5-14.0); SEGMENTED NEUTROPHILS % (AUTO) 63.3 % (42-78); TOTAL CELLS COUNTED % (AUTO) 100 %; WHITE BLOOD COUNT 7.2 10^3/uL (4.0-10.5)
[2020-04-16 08:56] LABS: ALBUMIN 3.6 g/dL (3.5-5.0); ALKALINE PHOSPHATASE 58 U/L (38-126); ANION GAP 9 (5-19); ASPARTATE AMINO TRANSFERASE 25 U/L (14-36); BLOOD UREA NITROGEN 9 mg/dL (7-20); CALCIUM 8.9 mg/dL (8.4-10.2); CARBON DIOXIDE 23 mmol/L (22-30); CHLORIDE 106 mmol/L (98-107); GLUCOSE 88 mg/dL (75-110)
[2020-04-16 08:57] LABS: BILIRUBIN,TOTAL 0.9 mg/dL (0.2-1.3); TOTAL PROTEIN 6.8 g/dL (6.3-8.2)
--- NOTE | 2020-04-16 09:49 | PDOC PROGRESS REPORT ---
Subjective Date:: 04/16/20 Subjective:: 29-year-old female admitted with biliary pancreatitis. Her symptoms are much im proved. She denies abdominal pain, nausea, vomiting, fevers, chills, chest pain, shortness of breath. Reason For Visit: GALLSTONE PANCREATITIS Physical Exam Vital Signs: Temp Pulse Resp BP Pulse Ox 99.4 F 83 18 138/75 H 98 04/16/20 08:00 04/16/20 08:00 04/16/20 08:00 04/16/20 08:00 04/16/20 08:00 Intake & Output 04/15/20 04/16/20 04/17/20 06:59 06:59 06:59 Intake Total 3000 Balance 3000 Weight 131.7 kg General appearance: PRESENT: no acute distress, obese Head exam: PRESENT: atraumatic, normocephalic Eye exam: PRESENT: EOMI, PERRLA. ABSENT: scleral icterus Mouth exam: PRESENT: moist, neck supple Neck exam: ABSENT: meningismus, tenderness, thyromegaly, tracheal deviation Respiratory exam: PRESENT: unlabored. ABSENT: tachypnea, wheezes Cardiovascular exam: ABSENT: tachycardia GI/Abdominal exam: PRESENT: soft, tenderness - Mild right upper quadrant tenderness. ABSENT: rebound, rigid Rectal exam: PRESENT: deferred Extremities exam: ABSENT: clubbing Musculoskeletal exam: ABSENT: deformity Neurological exam: PRESENT: alert, awake, oriented to person, oriented to place, oriented to time, oriented to situation, CN II-XII grossly intact. ABSENT: motor sensory deficit Psychiatric exam: ABSENT: agitated, anxious, depressed Focused psych exam: ABSENT: delusional Skin exam: ABSENT: cyanosis, erythema, jaundice Results Laboratory Results: 04/16/20 08:08 04/16/20 08:08 04/15/20 04/16/20 04/16/20 14:16 08:08 08:08 WBC 7.2 RBC 4.65 Hgb 11.9 L Hct 36.9 MCV 79 L MCH 25.6 L MCHC 32.3 RDW 16.2 H Plt Count 236 Seg Neutrophils % 63.3 Sodium 137.7 Potassium 4.0 Chloride 106 Carbon Dioxide 23 Anion Gap 9 BUN 9 Creatinine 0.66 Est GFR ( Amer) > 60 Glucose 88 Calcium 8.9 Total Bilirubin 0.9 AST 25 Alkaline Phosphatase 58 Total Protein 6.8 Albumin 3.6 Lipase 275.8 Urine Color YELLOW Urine Appearance CLEAR Urine pH 6.0 Ur Specific [place] 1.026 Urine Protein 100 H Urine Glucose (UA) NEGATIVE Urine Ketones NEGATIVE Urine Blood NEGATIVE Urine Nitrite NEGATIVE Ur Leukocyte Esterase NEGATIVE Urine WBC (Auto) 1 Urine RBC (Auto) 3 Impressions: Abdomen Ultrasound 04/15/20 08:37 IMPRESSION: 1. GALLSTONES. 2. FATTY INFILTRATION OF THE LIVER. OTHERWISE NORMAL RIGHT UPPER QUADRANT ULT RASOUND. Assessment & Plan - Diagnosis (1) Acute gallstone pancreatitis Is this a current diagnosis for this admission?: Yes - Time Anticipated Discharge Disposition: Home, Self Care Anticipated Discharge Timeframe: within 24 hours - Plan Summary Plan Summary: 29-year-old female admitted with biliary pancreatitis. Her lipase is resolving. Her LFTs are normal. Her pain is gone. I have recommended operative intervention today. Plan for laparoscopic cholecystectomy. The patient has agreed to this. Rapid Covid test now. Risk/benefits discussed, informed consent obtained, and all questions answered.
[2020-04-16] MEDS ORDERED: MIDAZOLAM 2 MG/2 ML INJ ONE (10:53)
[2020-04-16] MEDS ORDERED: FENTANYL CITRATE INJ/PF 250 MCG/5 ML AMPULE ONE (10:53)
[2020-04-16] MEDS ORDERED: PROPOFOL INJ 200 MG/20 ML VIAL IV ONE (10:54)
[2020-04-16] MEDS ORDERED: SUGAMMADEX SODIUM 200 MG/2 ML SDV IV ONE (10:54)
[2020-04-16] MEDS ORDERED: MORPHINE SULFATE 10 MG/ML INJ ONE (10:54)
[2020-04-16] MEDS ORDERED: EPHEDRINE SULFATE INJ 50 MG/1 ML AMPULE ONE (10:54)
[2020-04-16] MEDS ORDERED: BUPIVACAINE HCL 0.25 % INJ/PF (2.5 MG/1 ML) 30 ML VIAL ONE (12:05)
[2020-04-16] MEDS ORDERED: OXYCODONE-ACETAMINOPHEN 5-325 MG TABLET PO PRN ×2 (13:42)
[2020-04-16] MEDS ORDERED: MORPHINE SULFATE 10 MG/ML INJ IV PRN (13:42)
[2020-04-16] MEDS ORDERED: DIPHENHYDRAMINE HCL 50 MG/ML VIAL IV PRN (13:42)
[2020-04-16] MEDS ORDERED: FENTANYL CITRATE INJ/PF 100 MCG/2 ML AMPUL IV PRN ×3 (13:42)
[2020-04-16] MEDS ORDERED: MEPERIDINE HCL/PF INJ 25 MG/1 ML DISP.SYRIN IV PRN (13:42)
[2020-04-16] MEDS ORDERED: PROMETHAZINE HCL INJ 25 MG/1 ML VIAL IV PRN ×2 (13:42)
[2020-04-16] MEDS ORDERED: DIPHENHYDRAMINE HCL 50 MG/ML VIAL ONE (15:04)
[2020-04-16] MEDS ORDERED: SUCCINYLCHOLINE CHLORIDE INJ 200 MG/10 ML VIAL ONE (15:04)
[2020-04-16] MEDS ORDERED: ONDANSETRON HCL INJ/PF 4 MG/2 ML SDV ONE (15:04)
[2020-04-16] MEDS ORDERED: KETOROLAC TROMETHAMINE 60 MG/2 ML SDV ONE (15:04)
[2020-04-16] MEDS ORDERED: DEXAMETHASONE SOD PHOSPHATE INJ 4 MG/1 ML VIAL ONE (15:04)
[2020-04-16] MEDS ORDERED: ROCURONIUM BROMIDE INJ 50 MG/5 ML VIAL IV ONE (15:04)
[2020-04-16] MEDS ORDERED: METOCLOPRAMIDE HCL INJ/PF 10 MG/2 ML SDV ONE (15:04)
--- NOTE | 2020-04-16 16:17 | Operative Report ---
Nonrecallable Operative Report DATE OF SURGERY: 04/16/20 PREOPERATIVE DIAGNOSIS: Biliary pancreatitis POSTOPERATIVE DIAGNOSIS: 1. Same as above. 2. Acute cholecystitis. 3. Gallbladder hydrops OPERATION: Laparoscopic cholecystectomy SURGEON: LIZ ZAMARRIPA ANESTHESIA: GA TISSUE REMOVED OR ALTERED: Gallbladder COMPLICATIONS: None apparent ESTIMATED BLOOD LOSS: Minimal PROCEDURE: Drains/implants: None. Procedure in detail: After informed consent was obtained, the patient was brought to the operating room and laid in the supine position. The area of the abdomen was prepped and draped in a normal sterile fashion. A 15 blade scalpel was used to create a supraumbilical incision. Dissection was carried through the subcutaneous tissues using sharp and blunt dissection. The linea alba fascia was incised sharply, the abdomen was entered sharply. The balloon trocar was inserted, and pneumoperitoneum was achieved. A subxiphoid 5 mm port was placed under direct laparoscopic visualization. 2 more 5 mm ports were placed in the right upper quadrant in similar fashion. Atraumatic graspers were placed through the 5 mm ports. The gallbladder was tense and distended. A cyst aspiration needle was used to aspirate approximately 80 cc of hydropic bile from the gallbladder. The gallbladder was then easily grasped. The gallbladder was retracted cephalad and laterally. Dissection was begun in the triangle of [place]. There was a dense inflammatory reaction in the area of the triangle of [place]. The cystic duct and cystic artery were identified. The cystic duct appeared dilated. The artery was dissected free. The critical view of safety was obtained. The cystic artery was then clipped and cut with laparoscopic instruments. At this time, the duct was inspected. It was dilated. It was felt prudent to secure the duct with a PDS Endoloop. Secondary to this, the gallbladder was freed from the liver bed using a mixture of sharp dissection, blunt dissection, and electrocautery. Next, a PDS Endoloop was secured around the infundibulum. The gallbladder was amputated, and placed into an Endo Catch bag. The gallbladder was pulled out through the umbilicus. The camera was reinserted. The abdomen was copiously irrigated and suctioned, until the effluent was clear. The hilum was inspected. It was found to be free of any leakage of blood or bile. Once this was confirmed, the 5 mm trochars were removed under direct laparoscopic visualization. The supraumbilical trocar was removed and pneumoperitoneum was relieved. The supraumbilical fascia was closed using 0 Vicryl suture in [id number] fashion. The overlying skin was closed using 4-0 Vicryl Rapide suture in subcuticular fashion. Dressings were placed, and the procedure was concluded. All sponge, instrument, and needle counts were correct x2. Condition: Stable.
[2020-04-17] MEDS: NORMAL SALINE 1000 ML 1,000 ML IV PRN (02:28)
[2020-04-17] MEDS: AMPICILLIN SODIUM/SULBACTAM NA 3 GM in NORMAL SALINE 100 ML IV SCH ×2 (03:21→09:55)
[2020-04-17] MEDS: HYDROMORPHONE HCL INJ/PF 2 MG/ML AMPULE IV PRN ×2 (03:38→10:24)
--- NOTE | 2020-04-17 08:59 | PDOC PROGRESS REPORT ---
Subjective Date:: 04/17/20 Subjective:: Complain of upper abdominal pain. No nausea or vomiting. Reason For Visit: GALLSTONE PANCREATITIS Physical Exam Vital Signs: Temp Pulse Resp BP Pulse Ox 97.6 F 75 17 149/91 H 98 04/17/20 03:48 04/17/20 03:48 04/17/20 03:48 04/17/20 03:48 04/17/20 03:48 Intake & Output 04/16/20 04/17/20 04/18/20 06:59 06:59 06:59 Intake Total 3000 4300 Output Total 25 Balance 3000 4275 Weight 131.7 kg 136.2 kg General appearance: PRESENT: no acute distress, cooperative Respiratory exam: PRESENT: clear to auscultation elvis Cardiovascular exam: PRESENT: RRR GI/Abdominal exam: PRESENT: other - Soft, nondistended, tender across her upper abdomen without peritoneal signs. Her wounds are clean dry and intact. Results Laboratory Results: 04/16/20 08:08 04/16/20 08:08 04/16/20 04/16/20 08:08 08:08 WBC 7.2 RBC 4.65 Hgb 11.9 L Hct 36.9 MCV 79 L MCH 25.6 L MCHC 32.3 RDW 16.2 H Plt Count 236 Seg Neutrophils % 63.3 Sodium 137.7 Potassium 4.0 Chloride 106 Carbon Dioxide 23 Anion Gap 9 BUN 9 Creatinine 0.66 Est GFR ( Amer) > 60 Glucose 88 Calcium 8.9 Total Bilirubin 0.9 AST 25 Alkaline Phosphatase 58 Total Protein 6.8 Albumin 3.6 Lipase 275.8 Impressions: Abdomen Ultrasound 04/15/20 08:37 IMPRESSION: 1. GALLSTONES. 2. FATTY INFILTRATION OF THE LIVER. OTHERWISE NORMAL RIGHT UPPER QUADRANT ULTRASOUND. Assessment & Plan - Diagnosis (1) Acute gallstone pancreatitis Is this a current diagnosis for this admission?: Yes Plan: Has upper abdominal pain. Will check labs. If labs okay and patient improves will plan discharge later today. - Time Anticipated Discharge Disposition: Home, Self Care Anticipated Discharge Timeframe: within 24 hours
[2020-04-17 10:00] LABS: ABSOLUTE BASOPHILS # (AUTO) 0.1 10^3/uL (0.0-0.2); ABSOLUTE EOSINOPHILS # (AUTO) 0.1 10^3/uL (0.0-0.6); ABSOLUTE LYMPHOCYTES (AUTO) 2.1 10^3/uL (0.5-4.7); ABSOLUTE MONOCYTES (AUTO) 0.5 10^3/uL (0.1-1.4); ABSOLUTE NEUT (AUTO) 5.3 10^3/uL (1.7-8.2); BASOPHILS % (AUTO) 0.7 % (0-2); HEMATOCRIT 35.2 % (36.0-47.0); HEMOGLOBIN 11.4 g/dL (12.0-15.5); LYMPHOCYTES % (AUTO) 26.1 % (13-45); MEAN CORPUSCULAR HEMOGLOBIN 25.9 pg (27.0-33.4); MEAN CORPUSCULAR HGB CONC 32.4 g/dL (32.0-36.0); MEAN CORPUSCULAR VOLUME 80 fl (80-97); MONOCYTES % (AUTO) 6.2 % (3-13); PLATELET COUNT 224 10^3/uL (150-450); RED CELL DISTRIBUTION WIDTH 15.8 % (11.5-14.0); TOTAL CELLS COUNTED % (AUTO) 100 %; WHITE BLOOD COUNT 8.1 10^3/uL (4.0-10.5)
[2020-04-17 10:19] VITALS: BP 127/78
[2020-04-17 10:20] LABS: ALBUMIN 3.1 g/dL (3.5-5.0); ALKALINE PHOSPHATASE 48 U/L (38-126); ANION GAP 6 (5-19); ASPARTATE AMINO TRANSFERASE 26 U/L (14-36); BILIRUBIN,DIRECT 0.1 mg/dL (0.0-0.4); BILIRUBIN,TOTAL 0.6 mg/dL (0.2-1.3); BLOOD UREA NITROGEN 9 mg/dL (7-20); CALCIUM 8.5 mg/dL (8.4-10.2); CARBON DIOXIDE 25 mmol/L (22-30); CHLORIDE 107 mmol/L (98-107); GLUCOSE 131 mg/dL (75-110); POTASSIUM 3.9 mmol/L (3.6-5.0); TOTAL PROTEIN 6.2 g/dL (6.3-8.2)
--- NOTE | 2020-04-17 14:20 | PDOC PROGRESS REPORT ---
Subjective Date:: 04/17/20 Subjective:: Patient feels better with less pain. Tolerating a diet well. Reason For Visit: GALLSTONE PANCREATITIS Physical Exam Vital Signs: Temp Pulse Resp BP Pulse Ox 97.8 F 84 18 127/78 H 100 04/17/20 09:00 04/17/20 08:00 04/17/20 08:00 04/17/20 08:00 04/17/20 08:00 Intake & Output 04/16/20 04/17/20 04/18/20 06:59 06:59 06:59 Intake Total 3000 4300 Output Total 25 Balance 3000 4275 Weight 131.7 kg 136.2 kg General appearance: PRESENT: no acute distress, cooperative Respiratory exam: PRESENT: clear to auscultation elvis Cardiovascular exam: PRESENT: RRR GI/Abdominal exam: PRESENT: other - Soft, nondistended, mild epigastric abdominal tenderness. Psychiatric exam: PRESENT: appropriate affect Skin exam: PRESENT: warm Results Laboratory Results: 04/17/20 09:35 04/17/20 09:35 04/17/20 04/17/20 09:35 09:35 WBC 8.1 RBC 4.40 Hgb 11.4 L Hct 35.2 L MCV 80 MCH 25.9 L MCHC 32.4 RDW 15.8 H Plt Count 224 Seg Neutrophils % 66.0 Sodium 138.0 Potassium 3.9 Chloride 107 Carbon Dioxide 25 Anion Gap 6 BUN 9 Creatinine 0.61 Est GFR ( Amer) > 60 Glucose 131 H Calcium 8.5 Total Bilirubin 0.6 AST 26 Alkaline Phosphatase 48 Total Protein 6.2 L Albumin 3.1 L Lipase 185.2 Impressions: Abdomen Ultrasound 04/15/20 08:37 IMPRESSION: 1. GALLSTONES. 2. FATTY INFILTRATION OF THE LIVER. OTHERWISE NORMAL RIGHT UPPER QUADRANT ULTRASOUND. Assessment & Plan - Diagnosis (1) Acute gallstone pancreatitis Is this a current diagnosis for this admission?: Yes Plan: Status post laparoscopic cholecystectomy. Patient doing very well now. Her postoperative laboratory studies look good. Will discharge patient home. - Time Anticipated Discharge Disposition: Home, Self Care Anticipated Discharge Timeframe: within 24 hours
--- NOTE | 2020-04-17 14:27 | PDOC DISCHARGE SUMMARY ---
General - Admit/Disc Date/PCP Admission Date/Primary Care Provider: 04/15/20 17:35 NUBIA LECHUGA MD Discharge Date: 04/17/20 - Discharge Diagnosis Final Diagnosis: Gallstone pancreatitis, acute cholecystitis. - Assessment Summary: Patient was initially admitted and treated with IV antibiotics and IV fluids, bowel rest and IV pain medication. She was subsequently taken to the operating room where she underwent a laparoscopic cholecystectomy and was noted with acute cholecystitis at that time. Patient had some postoperative pain but was feeling much better at the time of discharge and was tolerating a diet well. Her postoperative laboratory studies look good. Patient is now been discharged home in good condition. She will follow-up with Dr. Marie in 2 weeks. She is encouraged to stay active at home but avoid strenuous activity. She may shower tomorrow. She wanted to stay out of work until her follow-up visit in 2 weeks which I think is appropriate. She is to call us for any problems such as persistent nausea and vomiting, worsening abdominal pain, fever, purulent discharge, erythema, jaundice. - Additional Information Resuscitation Status: Full Code Discharge Diet: As Tolerated - Low-fat diet Discharge Activity: Activity As Tolerated, Balance Activity w/Rest Referrals: LIZ MARIE MD [ACTIVE STAFF] - (In 2 weeks. For follow-up after laparoscopic cholecystectomy for gallstone pancreatitis.) Home Medications: Cyclosporine 0.05% Oph Emulsio [Restasis 0.05% Oph Emulsion Pf 0.4 ml] 1 drop OU BID 04/15/20 Norethindrone 1 tab PO DAILY 04/15/20 History of Present Illiness History of Present Illness: ERWIN NIEVES is a 29 year old female who is about 5 months presenting with acute onset of epigastric and right upper quadrant abdominal pain that began last night has progressively worsened along with nausea and vomiting. No fever. No jaundice. Couple of prior episodes of this sort of pain in the past several months but both episodes were very transient. Patient has been experiencing some intermittent diarrhea in the last couple of weeks. Physical Exam Vital Signs: Temp Pulse Resp BP Pulse Ox 97.8 F 84 18 127/78 H 100 04/17/20 09:00 04/17/20 08:00 04/17/20 08:00 04/17/20 08:00 04/17/20 08:00 Intake & Output 04/16/20 04/17/20 04/18/20 06:59 06:59 06:59 Intake Total 3000 4300 Output Total 25 Balance 3000 4275 Weight 131.7 kg 136.2 kg Results Laboratory Results: WBC 8.1 10^3/uL (4.0-10.5) 04/17/20 09:35 RBC 4.40 10^6/uL (3.72-5.28) 04/17/20 09:35 Hgb 11.4 g/dL (12.0-15.5) L 04/17/20 09:35 Hct 35.2 % (36.0-47.0) L 04/17/20 09:35 MCV 80 fl (80-97) 04/17/20 09:35 MCH 25.9 pg (27.0-33.4) L 04/17/20 09:35 MCHC 32.4 g/dL (32.0-36.0) 04/17/20 09:35 RDW 15.8 % (11.5-14.0) H 04/17/20 09:35 Plt Count 224 10^3/uL (150-450) 04/17/20 09:35 Lymph % (Auto) 26.1 % (13-45) 04/17/20 09:35 Lyman % (Auto) 6.2 % (3-13) 04/17/20 09:35 Eos % (Auto) 1.0 % (0-6) 04/17/20 09:35 Baso % (Auto) 0.7 % (0-2) 04/17/20 09:35 Absolute Neuts (auto) 5.3 10^3/uL (1.7-8.2) 04/17/20 09:35 Absolute Lymphs (auto) 2.1 10^3/uL (0.5-4.7) 04/17/20 09:35 Absolute Monos (auto) 0.5 10^3/uL (0.1-1.4) 04/17/20 09:35 Absolute Eos (auto) 0.1 10^3/uL (0.0-0.6) 04/17/20 09:35 Absolute Basos (auto) 0.1 10^3/uL (0.0-0.2) 04/17/20 09:35 Seg Neutrophils % 66.0 % (42-78) 04/17/20 09:35 Sodium 138.0 mmol/L (137-145) 04/17/20 09:35 Potassium 3.9 mmol/L (3.6-5.0) 04/17/20 09:35 Chloride 107 mmol/L (98-107) 04/17/20 09:35 Carbon Dioxide 25 mmol/L (22-30) 04/17/20 09:35 Anion Gap 6 (5-19) 04/17/20 09:35 BUN 9 mg/dL (7-20) 04/17/20 09:35 Creatinine 0.61 mg/dL (0.52-1.25) 04/17/20 09:35 Est GFR ( Amer) > 60 (>60) 04/17/20 09:35 Est GFR (MDRD) Non-Af > 60 (>60) 04/17/20 09:35 Glucose 131 mg/dL (75-110) H 04/17/20 09:35 Calcium 8.5 mg/dL (8.4-10.2) 04/17/20 09:35 Total Bilirubin 0.6 mg/dL (0.2-1.3) 04/17/20 09:35 Direct Bilirubin 0.1 mg/dL (0.0-0.4) 04/17/20 09:35 Neonat Total Bilirubin Not Reportable 04/17/20 09:35 Neonat Direct Bilirubin Not Reportable 04/17/20 09:35 Neonat Indirect Bili Not Reportable 04/17/20 09:35 AST 26 U/L (14-36) 04/17/20 09:35 ALT 15 U/L (<35) 04/17/20 09:35 Alkaline Phosphatase 48 U/L (38-126) 04/17/20 09:35 Total Protein 6.2 g/dL (6.3-8.2) L 04/17/20 09:35 Albumin 3.1 g/dL (3.5-5.0) L 04/17/20 09:35 Lipase 185.2 U/L (23-300) 04/17/20 09:35 Serum HCG, Qual NEGATIVE (NEGATIVE) 04/15/20 07:41 Urine Color YELLOW 04/15/20 14:16 Urine Appearance CLEAR 04/15/20 14:16 Urine pH 6.0 (5.0-9.0) 04/15/20 14:16 Ur Specific [place] 1.026 04/15/20 14:16 Urine Protein 100 mg/dL (NEGATIVE) H 04/15/20 14:16 Urine Glucose (UA) NEGATIVE mg/dL (NEGATIVE) 04/15/20 14:16 Urine Ketones NEGATIVE mg/dL (NEGATIVE) 04/15/20 14:16 Urine Blood NEGATIVE (NEGATIVE) 04/15/20 14:16 Urine Nitrite NEGATIVE (NEGATIVE) 04/15/20 14:16 Urine Bilirubin NEGATIVE (NEGATIVE) 04/15/20 14:16 Urine Urobilinogen NEGATIVE mg/dL (<2.0) 04/15/20 14:16 Ur Leukocyte Esterase NEGATIVE (NEGATIVE) 04/15/20 14:16 Urine WBC (Auto) 1 /HPF 04/15/20 14:16 Urine RBC (Auto) 3 /HPF 04/15/20 14:16 Squamous Epi Cells Auto 1 /HPF 04/15/20 14:16 Urine Mucus (Auto) FEW /LPF 04/15/20 14:16 Urine Ascorbic Acid NEGATIVE (NEGATIVE) 04/15/20 14:16 SARS-CoV-2 (PCR) NEGATIVE (NEGATIVE) 04/16/20 10:40 Impressions: Abdomen Ultrasound 04/15/20 08:37 IMPRESSION: 1. GALLSTONES. 2. FATTY INFILTRATION OF THE LIVER. OTHERWISE NORMAL RIGHT UPPER QUADRANT ULTRASOUND.
== END 2020-04-17 16:53 | disposition home or self-care (01) | DRG 418 ==
LOC: ER 07:11 → EH 17:35 → 2N 19:23
PROVIDERS: ADMIT Surgery; ATTEND Surgery
PROC: 0FT44ZZ Resection of Gallbladder, Percutaneous Endoscopic Approach (ICD-10-PCS; principal; 2020-04-16 10:30)
DX: K85.10 Biliary acute pancreatitis without necrosis or infection (principal); K81.0 Acute cholecystitis; K82.1 Hydrops of gallbladder; F32.9 Major depressive disorder, single episode, unspecified
CPT/HCPCS: 36415; 76705; 790; 80053; 81001; 83690; 84703; 85025; 87040; 87635; 88304; 96361; 96365; 96375; 99285; C9803; J0295; J0330; J1100; J1170; J1200; J1885; J2250; J2270; J2405; J2704; J2765; J3010; J3490; J7030; J7050